=== PATIENT | female | born 1995 | race Caucasian/White ===

== ENCOUNTER → 2021-06-23 | Day surgery (SDC) | payer BC ==
[~2021-06-23] MED LIST: COLACE 100MG C100 MG PO; HYDROCODON-ACE1 EAC4 PO; IBU600 MG PO; IBUPROFEN600 MG PO; LORTAB 5-325 M1 EACH PO; NORCO 5-325 TA1 EACH PO; PRENATAL VITAM1 EAC6 PO
[2021-06-23 06:30] LABS: HEMOGLOBIN 14.7 gm/dl (12.3-15.3); RED BLOOD COUNT 4.73 M/UL (4.00-5.10); WHITE BLOOD COUNT 8.3 K/UL (4.5-11.0)
== END | disposition home or self-care (01) ==
LOC: OR 05:48
PROVIDERS: Obstetrics & Gynecology
DX: O03.9 Complete or unspecified spontaneous abortion without complication (principal); Z20.822 Contact with and (suspected) exposure to COVID-19
CPT/HCPCS: 81001; 85025; J1100; J1885; J2001; J2250; J2405; J2704; J2795; J3010; J7030; J7120; U0002

== ENCOUNTER → 2021-10-23 | Outpatient (CLI) | payer BC | LOC: LAB 13:00 | DX: O20.0 Threatened abortion (principal) | CPT/HCPCS: 36415; 84702 ==